=== PATIENT | female | born 2000 | race Two or more races ===

== ENCOUNTER 2025-05-01 11:46 | Inpatient (IN) | payer MEDICAID, SELFPAY ==
--- NOTE | 2025-05-01 | XR_ITS ---
Examination: MRI pelvis, without intravenous contrast. Exam date and time: May 01, 2025 1714 hours INDICATIONS: Abdominal pain nausea vomiting and diarrhea being exam this morning Technique: Multiple axial, sagittal and coronal images of the pelvis have been obtained with the Siemens high-resolution 1.5 Jenna MRI scanner. Images obtained included T2 weighted fat suppressed sagittal sections, TR 3500, TE 46, T2 weighted coronal fat suppressed images, TR 3050, TE 84, T2-weighted transverse fat suppressed images, TR 30-60, TE 63, proton density transverse images, TR 4720, TE 46, and T1 weighted coronal images, TR 560, TE 13. Findings: Anteverted uterus 7.4 x 4.2 x 3.8 cm Endometrial stripe 11 mm No discrete uterine mass Small bilateral ovarian follicular cysts Cystic mass in the central pelvis with septation at its right anterolateral margin axial image 7, measuring at least 22 x 10 cm, incompletely visualized on this study Urinary bladder intact No pelvic lymphadenopathy Mild free fluid in the pelvis Homogeneous marrow signal IMPRESSION: Large cystic mass with septation arising in the pelvis and extending into the abdomen, as on the differential list is cystadenoma, cystadenocarcinoma less likely but not excluded
--- NOTE | 2025-05-01 | XR_ITS ---
Examination: MRI abdomen, without contrast Date and time of exam: May 01, 2025 1714 hours INDICATIONS: Abdominal pain nausea vomiting diarrhea beginning 3:00 AM this morning Large cystic mass arising in the pelvis extending into the abdomen on CT abdomen pelvis study today at 3:32 PM Technique: Multiple axial sagittal and coronal images of the abdomen have been obtained with the Siemens high-resolution 1.5 Jenna MRI scanner. Images obtained include T2-weighted fat-suppressed sagittal sections, TR 3500, TE 46, T2 weighted coronal fat suppressed images, TR 3050, TE 84, T2-weighted transverse fat suppressed images, TR 3260, TE 63, proton density transverse images, TR 4720 TE 46, and T1 weighted coronal images, TR 560, TE 13. Findings: No focal liver lesions No gallstones Spleen is not enlarged Mild right hydronephrosis Partially visualized very large cystic pelvic mass with septations, extending into the upper left abdomen, incompletely visualized but at least 22 x 28 cm No abdominal lymphadenopathy Aorta is normal in size IMPRESSION: Partially visualized very large cystic mass arising in the pelvis extending into the upper left abdomen, chest on the differential diagnosis is cyst adenoma, cystadenocarcinoma less likely but not excluded No postcontrast images have been obtained, which would help in assessing for mural , septal or nodular enhancement within this mass
[2025-05-01 11:47] VITALS: BMI 22.3
[2025-05-01 12:23] VITALS: BP 110/70; PULSE 108; RESP 18; TEMP 37; O2SAT 100
--- NOTE | 2025-05-01 12:34 | XR_ITS ---
Examination: CT abdomen and pelvis without contrast. Coronal 3-D reconstructions. Sagittal 2-D reconstructions. Date and time of exam:May 01, 2025 1532 hours INDICATIONS: Diffuse abdominal distention nausea vomiting diarrhea today CTDI: vol (mGy): 6.08 DLP: (mGycm): 40 Technique: Axial images of the abdomen have been obtained, 3 mm slice thickness Intravenous contrast material has not been administered. Low dose protocols were performed. One or more of the following dose reduction techniques were used; automated exposure control, adjustment of the mA and/or KV according to patient size, use of iterative reconstruction technique. Findings: No focal liver or splenic lesions No gallstones No pancreatic mass Moderate right hydronephrosis Very large cystic mass arising in the pelvis extending into the abdomen, at least 22 x 10 x 28 cm The mass contains septations No bowel obstruction No pericecal inflammatory change Bladder intact IMPRESSION: 22 x 10 x 28 cm cystic mass in the pelvis extending into the abdomen, differential would include cystadenoma, cystadenocarcinoma, recommend pelvic sonography follow-up
[2025-05-01] MEDS: MORPHINE SULF INJ 10 MG/ML VIAL 4 MG IVP (13:06)
[2025-05-01] MEDS: ONDANSETRON INJ 2 MG/ML INJ 2 ML 4 MG IVP (13:06)
[2025-05-01] MEDS: SODIUM CHLORIDE 0.9% 1000 ML 1,000 ML 999 ML IV ×2 (13:07→18:24)
[2025-05-01 13:13] LABS: Basophils % (Auto) 0 % (0-2.5); Eosinophils % (Auto) 0 % (0-10); Hematocrit 35.9 % (36.0-46.0); Hemoglobin 12.6 g/dL (12.0-16.0); Immature Granulocytes % (Auto) 0 % (0-0); Immature Granulocytes Auto 0.04 Thou/mm3 (0.00-0.00); Lymphocytes # (Auto) 0.3 Thou/mm3 (1.0-4.8); Lymphocytes % (Auto) 3 % (10-50); Mean Corpuscular HGB Conc 35.1 g/dl (31.0-37.0); Mean Corpuscular Hemoglobin 31.6 pg (25.0-35.0); Mean Corpuscular Volume 90 fL (80-100); Monocytes # (Auto) 0.4 Thou/mm3 (0.0-0.8); Monocytes % (Auto) 4 % (0-12); Neutrophils # (Auto) 9.9 Thou/mm3 (1.8-7.7); Neutrophils % (Auto) 93 % (37-80); Nucleated Red Blood Cell % 0 /100 WBC (0); Platelet Count 232 Thou/mm3 (140-440); RDW Standard Deviation 40.8 fL (36.4-46.3); Red Blood Count 3.99 Miln/mm3 (4.00-5.20); White Blood Count 10.6 Thou/mm3 (3.6-11.0)
[2025-05-01 13:28] VITALS: BP 126/77; PULSE 99; RESP 17; TEMP 36.8; O2SAT 96
[2025-05-01 13:30] LABS: Alanine Aminotransferase 20 U/L (10-49); Albumin, Serum 4.3 gm/dL (3.5-5.0); Alkaline Phosphatase 59 U/L (46-116); Anion Gap 15 (7-16); BUN/Creatinine Ratio 16 Ratio (12-20); Bilirubin,Total 1.4 mg/dL (0.3-1.2); Blood Urea Nitrogen 11 mg/dL (9-23); Calcium 9.3 mg/dL (8.3-10.6); Calcium (Corrected) 9.3 mg/dL (8.5-10.1); Carbon Dioxide 21.8 mMol/L (20.0-31.0); Chloride 105 mMol/L (98-107); Creatinine (Component) 0.7 mg/dL (0.6-1.3); Estimated Creatinine Clearance 100.7 mL/min (>60); Globulin 2.1 gm/dL (2.3-3.5); Glucose 114 mg/dL (74-106); Lipase 37 U/L (12-53); Osmolality,Calculated 283 (275-295); Potassium 3.3 mMol/L (3.4-5.1); Sodium 142 mMol/L (136-145); Total Protein 6.4 gm/dL (5.7-8.2); eGFR > 60 See Note
--- NOTE | 2025-05-01 13:51 | EDNOTE_ITS ---
ED Abdominal Pain RME/HPI General Chief Complaint: Abdominal Pain Stated complaint: ABD PAIN, N/V/D SINCE 3AM; ANXIETY Time seen by provider: 05/01/25 11:58 Arrival date/time: 05/01/25 11:46 Source: patient and family Mode of arrival: ambulatory Limitations: no limitations RME / HPI RME / HPI narrative: 24-year-old female with past medical history of appendicitis status post appendectomy in 2019 presents for evaluation of diffuse abdominal pain x 8 hours. Patient reports sharp, cramping, diffuse pain that woke her from sleep. She reports x 4 episodes of emesis and many episodes of loose stools. She endorses persistent nausea. She notes mild distention and abdominal firmness for the last several months. Patient denies known sick contacts, recent travel, recent antibiotic use. MD complaint: abdominal pain Onset (ago): hour(s) Consistency: constant Location: diffuse Severity scale (1-10): 7 Quality: aching and fullness Relieving factors: nothing Related Data LMP (females 10-50): last week Home Medications ?Medication ?Instructions ?Recorded ?Confirmed escitalopram oxalate 10 mg tablet 10 mg PO QDAY 05/01/25 (Lexapro) loratadine 10 mg tablet (Allergy 10 mg PO QDAY 5 05/01/25 Relief (loratadine)) Previous Rx's ?Medication ?Instructions ?Recorded ibuprofen 600 mg tablet 600 mg PO Q6HR PRN PAIN(1-3) OR 05/02/25 FEVER > 101.5 10 days #40 tabs oxycodone-acetaminophen 5 mg-325 1 tab PO Q6H PRN Pain Scale 4-6 05/02/25 mg tablet (Moderate 5 days #20 tabs sennosides 8.6 mg-docusate sodium 1 tab-cap PO QDAY 30 days #30 tabs 05/02/25 50 mg tablet (Stool Softener-Laxative) Allergies Allergy/AdvReac Type Severity Reaction Status Date / Time terbinafine Allergy Severe Rash Verified 05/01/25 11:50 Review of Systems Constitutional Constitutional: Denies anorexia, Denies body ache(s), Denies chills, Denies excessive sweating, Denies fatigue, Denies fever(s), Denies headache(s), Denies poor appetite, Denies night sweats and Denies weight loss Eyes Eyes: Denies blind spots and Denies blurry vision ENT Ears, Nose, Mouth, and Throat: Denies dizziness, Denies headache(s), Denies neck pain and Denies vertigo Cardiovascular Cardiovascular: Denies chest pain, Denies dyspnea and Denies leg edema Respiratory Respiratory: Denies cough, Denies dyspnea and Denies hemoptysis Gastrointestinal Gastrointestinal: Reports abdominal pain, Denies belching, Reports bloating, Denies change in bowel habits, Reports change in stool character, Denies coffee ground emesis, Reports cramping, Reports diarrhea, Denies early satiety, Denies hematemesis, Reports nausea and Reports vomiting Genitourinary Genitourinary: Denies abnormal vaginal bleeding and Denies dysuria Musculoskeletal Musculoskeletal: Denies back pain, Denies muscle weakness and Denies neck pain Integumentary/Breasts Skin/Breast: Denies jaundice and Denies rash Neurologic Neurologic: Denies behavioral changes, Denies dizziness, Denies headache(s) and Denies vertigo Psychiatric Psychiatric: Reports anxiety and Denies behavioral changes Endocrine Endocrine: Denies excessive sweating and Denies fatigue Past Medical History Past Medical History NEUROLOGIC: Negative Neurological Disorders or Seizures CARDIAC: Negative Cardiac Disorders or Congestive Heart Failure RESPIRATORY: Negative Respiratory Disorders, Chronic Obstructive Pulmonary Disease (COPD) or Asthma GASTROINTESTINAL: Negative Gastrointestinal Disorders GENITOURINARY: Negative Genitourinary Disorders or Renal Disease MUSCULOSKELETAL: Negative Musculoskeletal Disorders ENDOCRINE: Negative Endocrine Disorders, Diabetes Mellitus Type 1 or Diabetes Mellitus Type 2 HEMATOLOGIC: Negative Blood Disorders, Anemia or Sickle Cell Disease PSYCHO/SOCIAL: Positive Depression and Anxiety OTHER HISTORY: Negative Hospitalization, Autoimmune Disease, Down Syndrome, Developmental Delay, Shingles, Falls, Blood Transfusions, Blood Transfusion Reaction, Anesthesia Reactions or Cancer Family History FAMILY HISTORY: Negative Family Cardiac Disorders Surgical History SURGICAL: Positive Abdominal Surgery Social History SMOKING STATUS: Former smoker SECOND HAND EXPOSURE: No SUBSTANCE USE: does not use ED Exam General Limitations: Present no limitations General appearance: Present alert, in no apparent distress and anxious; Absent obtunded Head Head exam: Present atraumatic and normocephalic Eye Eye exam: Present normal appearance and EOMI; Absent scleral icterus ENT ENT exam: Present normal oropharynx and mucous membranes moist Neck Neck exam: Present normal inspection and full ROM Chest Chest inspection: Present normal inspection and symmetric chest wall rise Respiratory Respiratory exam: Present normal lung sounds bilaterally; Absent respiratory distress or wheezes Cardiovascular Cardiovascular exam: Present tachycardia and +S1 Abdominal Exam Abdominal exam: Present soft, distention, guarding, rigidity and normal bowel sounds; Absent tenderness, ascites, mass, pulsatile mass or scar Rectal Exam Rectal exam: Present deferred Extremities Exam Extremities exam: Present normal inspection and full ROM Back Exam Back exam: Present normal inspection and full ROM Neurological Exam Neurological exam: Present alert Psychiatric Psychiatric exam: Present normal affect Skin Skin exam: Present warm, dry, intact and normal color Course Quality Measures none Orders Category Date Time Status Bedside COVID-19 Antigen Test NOW Care 05/01/25 12:36 Completed Bedside Influenza A&B Antigen Test NOW Care 05/01/25 12:36 Completed COVID-19 Screening Questionnaire NOW Care 05/01/25 16:54 Completed Decision to Admit X1 Care 05/01/25 16:54 Completed Insert IV NOW Care 05/01/25 12:35 Completed MRI Screening NOW Care 05/01/25 16:[address] abdomen pelvis wo con Stat Exams 05/01/25 12:34 Completed MR abdomen wo con Stat Exams 05/01/25 Completed MR pelvis wo con Stat Exams 05/01/25 Completed CA 125 Stat Lab 05/01/25 13:02 Completed CBC Stat Lab 05/01/25 13:02 Completed CMP [Comprehensive Metabolic Panel] Stat Lab 05/01/25 13:02 Completed HCG,Qualitative Serum Stat Lab 05/01/25 13:02 Completed Lipase Stat Lab 05/01/25 13:02 Completed UA [Urinalysis] Stat Lab 05/01/25 12:34 Completed Acetaminophen Tab [Tylenol Tab] Med 05/01/25 18:13 Discontinued 650 mg PO X1 ONE Morphine Inj Med 05/01/25 12:35 Discontinued 4 mg IVP X1 ONE Ondansetron Inj [Zofran Inj] Med 05/01/25 12:35 Discontinued 4 mg IVP X1 ONE Sodium Chloride 0.9% 1000 ml [Ns] 1,000 ml Med 05/01/25 12:35 Discontinued IV 999 mls/hr Sodium Chloride 0.9% 1000 ml [Ns] 1,000 ml Med 05/01/25 18:14 Discontinued IV 999 mls/hr Vital Signs Vital signs: Vital Signs Temperature 98.6 F 05/01/25 12:23 Pulse Rate 108 H 05/01/25 12:23 Respiratory Rate 18 05/01/25 12:23 Blood Pressure 110/70 05/01/25 12:23 Pulse Oximetry (%) 100 05/01/25 12:23 Oxygen Delivery Method Room Air 05/01/25 12:23 Abdominal Pain MDM MDM Narrative MDM Narrative:: Very pleasant 24-year-old female presented with acute onset nausea and vomiting x 8 hours prior to arrival. Patient endorsed abdominal distention x 1 year. Patient tachycardic with borderline fever on initial vital signs. Abdominal workup showed no evidence of pancreatitis or cirrhotic changes, however large mass noted on CT abdomen pelvis. This case was discussed with Dr. Rhoades OBGYN post tensioning ironworker helper, who very kindly agreed to admit the patient for further workup and treatment. Patient's pain was improved following morphine and Tylenol in the department. Patient was given multiple bags of fluids and I personally discussed the results of her workup in the ED with her and her mom. Patient stable at time of admission. We are grateful to have dissipated in patient's care today. Patient data External records reviewed:: [facility] previous records Clinical information provided by:: patient and parent Social determinants that could affect healthcare access:: none Patient has the following chronic illnesses:: None reported. How is presenting disease/condition affected by chronic disease/condition?: no chronic disease Evaluation data The following diagnostics were reviewed and interpreted by me:: lab results and radiology exam(s) Lab and/or radiology exams considered but not ordered:: Mild hypokalemia. Mild hyperglycemia. Otherwise no evidence of endorgan damage or gross electrolyte abnormalities. No leukocytosis. No anemia. hCG negative. Interpretation Summary: CT Abd pelvis w/o contrast: Findings: 22 x 10 x 28 cm cystic mass in the pelvis extending into the abdomen, differential would include cystadenoma, cystadenocarcinoma, recommend pelvic sonography follow-up Medications / Prescriptions Medications or Prescriptions considered but not ordered:: Rx given. Medication administrations:: Medication Administration History Acetaminophen (Acetaminophen 325 Mg Tablet) 650 mg PO Q6H PRN PRN Reason: Fever >101.5 Stop: 05/31/25 18:40 Bisacodyl (Bisacodyl 5 Mg Tabec) 10 mg PO QDAY PRN PRN Reason: CONSTIPATION Stop: 05/31/25 18:40 Bisacodyl (Bisacodyl 10 Mg Supp) 10 mg NC QDAY PRN PRN Reason: CONSTIPATION Stop: 05/31/25 18:40 Escitalopram Oxalate (Escitalopram Oxalate 10 Mg Tablet) 10 mg PO QDAY TERESE Stop: 06/01/25 08:59 Last Admin: 05/02/25 08:36 Dose: Not Given Documented By: TD Non-Admin Reason: NPO Hydromorphone HCl (Hydromorphone Hcl 2 Mg Tablet) 2 mg PO Q4HR PRN PRN Reason: PAIN SCALE 7-10 (Severe Stop: 05/07/25 14:04 Last Admin: 05/03/25 02:20 Dose: 2 mg Documented By: Admin: 05/02/25 22:03 Dose: 2 mg Documented By: Admin: 05/02/25 16:11 Dose: 2 mg Documented By: BROCK Hydromorphone HCl (Hydromorphone Inj 2 Mg/Ml Vial) 1 mg IVP Q2H PRN PRN Reason: PAIN SCALE 7-10 (Severe Stop: 05/06/25 18:40 Last Admin: 05/02/25 23:27 Dose: 1 mg Documented By: Admin: 05/02/25 18:13 Dose: 1 mg Documented By: BROCK Dextrose/Sodium Chloride (D5-1/2ns) 1,000 mls @ 100 mls/hr IV .Q10H TERESE Stop: 05/31/25 18:44 Last Admin: 05/03/25 02:25 Dose: 100 mls/hr Documented By: Infusion: 05/03/25 02:12 Dose: Infused Documented By: Admin: 05/02/25 16:12 Dose: 100 mls/hr Documented By: Infusion: 05/02/25 16:12 Dose: Infused Documented By: Admin: 05/02/25 06:12 Dose: 100 mls/hr Documented By: Infusion: 05/02/25 05:36 Dose: Infused Documented By: Admin: 05/01/25 19:36 Dose: 100 mls/hr Documented By: REHAN Acetaminophen (Ofirmev Inj) 1,000 mg in 100 mls @ 250 mls/hr IV Q6H TERESE Stop: 05/03/25 08:28 Last Admin: 05/03/25 02:20 Dose: 250 mls/hr Documented By: Infusion: 05/02/25 21:25 Dose: Infused Documented By: Admin: 05/02/25 21:01 Dose: 250 mls/hr Documented By: Infusion: 05/02/25 15:10 Dose: Infused Documented By: Admin: 05/02/25 14:42 Dose: 250 mls/hr Documented By: BLADIMIR Ibuprofen (Ibuprofen Tab 600 Mg Tablet) 600 mg PO Q6HR PRN PRN Reason: PAIN(1-3) OR FEVER > 101.5 Stop: 06/01/25 14:04 Loratadine (Loratadine 10 Mg Tablet) 10 mg PO QDAY [facility] Stop: 06/01/25 08:59 Last Admin: 05/02/25 08:36 Dose: Not Given Documented By: TD Non-Admin Reason: NPO Ondansetron HCl (Ondansetron Inj 2 Mg/Ml Inj 2 Ml) 4 mg IVP Q6H PRN PRN Reason: NAUSEA OR VOMITING Stop: 05/31/25 18:40 Pantoprazole Sodium (Pantoprazole 40 Mg Tablet) 40 mg PO QDAY [facility] Stop: 05/31/25 18:44 Last Admin: 05/02/25 08:36 Dose: Not Given Documented By: TD Non-Admin Reason: NPO Admin: 05/01/25 19:35 Dose: 40 mg Documented By: REHAN Discontinued Medications Acetaminophen (Acetaminophen 325 Mg Tablet) 650 mg PO X1 ONE Stop: 05/01/25 18:14 Last Admin: 05/01/25 18:21 Dose: 650 mg Documented By: REHAN Cefazolin Sodium (Cefazolin Inj 1 Gm Vial) Confirm Administered Dose 2 gm .ROUTE .STK-MED ONE Stop: 05/02/25 13:39 Dexamethasone Sodium Phosphate (Dexamethasone Sod Phos Inj 10 Mg/Ml Vial) Confirm Administered Dose 10 mg .ROUTE .STK-MED ONE Stop: 05/02/25 13:44 Fentanyl Citrate (Fentanyl Cit Inj 50 Mcg/Ml Amp 2ml) Confirm Administered Dose 100 mcg .ROUTE .STK-MED ONE Stop: 05/02/25 13:04 Fentanyl Citrate (Fentanyl Cit Inj 50 Mcg/Ml Amp 2ml) 50 mcg IVP Q5M PRN PRN Reason: PAIN SCALE 7-10 (Severe Stop: 05/02/25 16:32 Last Admin: 05/02/25 14:56 Dose: 50 mcg Documented By: BLADIMIR Fentanyl Citrate (Fentanyl Cit Inj 50 Mcg/Ml Amp 2ml) Confirm Administered Dose 100 mcg .ROUTE .STK-MED ONE Stop: 05/02/25 14:23 Hydromorphone HCl (Hydromorphone Inj 2 Mg/Ml Vial) 1 mg IVP Q2H PRN PRN Reason: PAIN SCALE 7-10 (Severe Stop: 05/06/25 18:40 Last Admin: 05/02/25 08:44 Dose: 1 mg Documented By: BROCK Sodium Chloride (Ns) 1,000 mls @ 999 mls/hr IV .Q1H1M ONE Stop: 05/01/25 13:35 Last Infusion: 05/01/25 14:08 Dose: Infused Documented By: Admin: 05/01/25 13:07 Dose: 999 mls/hr Documented By: AA Sodium Chloride (Ns) 1,000 mls @ 999 mls/hr IV .Q1H1M ONE Stop: 05/01/25 19:14 Last Admin: 05/01/25 18:24 Dose: 999 mls/hr Documented By: REHAN Acetaminophen (Ofirmev Inj) 1,000 mg in 100 mls @ 250 mls/hr IV PRN PRN PRN Reason: PAIN 1-6 (mild-mod Ibuprofen (Ibuprofen Tab 600 Mg Tablet) 600 mg PO Q6HR PRN PRN Reason: PAIN(1-3) OR FEVER > 101 Stop: 06/01/25 14:04 Ibuprofen (Ibuprofen Tab 600 Mg Tablet) 600 mg PO Q6HR PRN PRN Reason: PAIN(1-3) OR FEVER > 101.5 Stop: 06/01/25 14:04 Ketorolac Tromethamine (Ketorolac Inj 30 Mg/Ml Vial) Confirm Administered Dose 30 mg .ROUTE .STK-MED ONE Stop: 05/02/25 13:44 Midazolam HCl (Midazolam Inj 1 Mg/Ml Vial 2 Ml) Confirm Administered Dose 2 mg .ROUTE .STK-MED ONE Stop: 05/02/25 13:00 Morphine Sulfate (Morphine Sulf Inj 10 Mg/Ml Vial) 4 mg IVP X1 ONE Stop: 05/01/25 12:36 Last Admin: 05/01/25 13:06 Dose: 4 mg Documented By: ANA PAULA Ondansetron HCl (Ondansetron Inj 2 Mg/Ml Inj 2 Ml) 4 mg IVP X1 ONE; Protocol Stop: 05/01/25 12:36 Last Admin: 05/01/25 13:06 Dose: 4 mg Documented By: ANA PAULA Ondansetron HCl (Ondansetron Inj 2 Mg/Ml Inj 2 Ml) Confirm Administered Dose 4 mg .ROUTE .STK-MED ONE Stop: 05/02/25 13:44 Ondansetron HCl (Ondansetron Inj 2 Mg/Ml Inj 2 Ml) 4 mg IVP Q6HR PRN; Protocol PRN Reason: NAUSEA OR VOMITING Stop: 06/01/25 14:31 Oxycodone/Acetaminophen (Oxycodone/Apap 5/325 Tablet) 1 tab PO Q6H PRN PRN Reason: PAIN SCALE 4-6 (Moderate Stop: 05/06/25 18:40 Last Admin: 05/02/25 00:58 Dose: 1 tab Documented By: ABEBA Phenylephrine HCl (Phenylephrine Inj In Ns 100 Mcg/Ml 10 Ml Syringe) Confirm Administered Dose 1,000 mcg .ROUTE .STK-MED ONE Stop: 05/02/25 13:19 Propofol (Propofol Inj 10 Mg/Ml Vial 20 Ml) Confirm Administered Dose 200 mg IV .STK-MED ONE Stop: 05/02/25 13:04 Rocuronium [place] (Rocuronium Inj 10 Mg/Ml Vial 10 Ml) Confirm Administered Dose 100 mg .ROUTE .STK-MED ONE Stop: 05/02/25 13:04 Sugammadex Sodium (Sugammadex Inj 100 Mg/Ml 2ml Vial) Confirm Administered Dose 200 mg .ROUTE .STK-MED ONE Stop: 05/02/25 13:39 Sugammadex Sodium (Sugammadex Inj 100 Mg/Ml 2ml Vial) Confirm Administered Dose 200 mg .ROUTE .STK-MED ONE Stop: 05/02/25 13:44 Rx given. Consultations Consultation(s) initiated? (list below): Yes Consultation #1 (Physician, Specialty, Details): Dr. Rhoades (OBGYN post tensioning ironworker helper) kindly agreed to admit and see pt in ED. Diagnosis Differential diagnosis abdominal pain: abdominal pain, calculus of kidney, gastroenteritis, pancreatitis and small bowel obstruction Most likely diagnosis given after review of the tests above:: abdominal pain, pelvic mass. Admission Indicated Admission indicated?: indicated Admission Request Was there a request for admission?: Yes Admission Attestation Admission request attestation: Discussed case with from OBGYN service regarding admission. Discussed patients ED course, exam findings, labs, and radiology results. The Hospitalist agrees to accept the patient for admission. Disposition Plan Disposition Plan: Admit Discharge Plan Plan Patient Disposition: Admit Acute Care w/in Hospital Discharge Disposition comment: stable Patient condition on transfer: Stable Problem List Clinical Impression: Pelvic mass in female, Abdominal pain Patient/Caregiver Discharge Instructions Discharge Activity: activity as tolerated Other Activity Instructions:: Follow up office 1 week.
[2025-05-01 14:38] LABS: Collection Type, Urine Clean Catch
[2025-05-01 15:00] LABS: Bilirubin,Urine Negative (Negative); Blood,Urine Negative (Negative); Clarity,Urine Clear (Clear/Hazy); Color,Urine Colorless (Lt Yel-Yel); Glucose, Urine Negative (Negative); Ketones,Urine 2+ (Negative); Leukocyte Esterase,Urine Negative (Negative); Nitrite,Urine Negative (Negative); Protein,Urine 1+ (Neg - Trace); RBC,Urine 3 /hpf (0-3); Specific Gravity,Urine 1.008 (1.001-1.035); Squamous Epithelial Cell,Urine < 1 /hpf (0-5); Urobilinogen,Urine Negative mg/dL (0.0-1.0); WBC,Urine 1 /hpf (0-5)
[2025-05-01 15:17] LABS: HCG,Qualitative Serum Negative
[2025-05-01 17:06] VITALS: BP 127/77; PULSE 120; RESP 18; TEMP 38; O2SAT 97
--- NOTE | 2025-05-01 17:20 | PC.NURSE ---
PT TO MRI
[2025-05-01 18:21] VITALS: TEMP 38
[2025-05-01] MEDS: ACETAMINOPHEN 325 MG TABLET 650 MG PO (18:21)
--- NOTE | 2025-05-01 18:44 | ESHP_ITS ---
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 GUEVARA is a 24 year old female with a history of appendicitis who presents to the emergency room with diffuse abdominal pain for the last 8 hours. She reports 4 episodes of emesis and multiple episodes of loose stools, accompanied by persistent nausea, mild distension, and firmness in her abdomen for the last several months. Patient has noticed a feeling of something in her stomach for approximately a year, with some weight gain, though not significant. She experiences pretty bad period cramps at times, but states her periods have otherwise been fine. During the emergency room evaluation, an incidental finding of a large cystic mass arising from the pelvis and extending into the abdomen was noted. Patient has not seen an OB-ANIMAL HUSBANDRY MANAGER doctor in the last 2-3 years. Medical history includes appendicitis in 2019, with an appendectomy performed the same year. Review of systems is positive for mild abdominal distension, firmness in abdomen, diffuse abdominal pain, nausea, emesis, loose stools, and occasional severe menstrual cramps. Patient denies fever and chills. Review of Systems Review of Systems Systems Reviewed: All systems reviewed, normal except as documented Meds Home Medications and Allergies Allergies Allergy/AdvReac Type Severity Reaction Status Date / Time terbinafine Allergy Severe Rash Verified 05/01/25 11:50 Exam - ANIMAL HUSBANDRY MANAGER Vital Signs Temp Pulse Resp BP Pulse Ox O2 Del Method 100.4 F 120 H 18 127/77 97 Room Air 05/01/25 17:06 05/01/25 17:06 05/01/25 17:06 05/01/25 17:06 05/01/25 17:06 05/01/25 17:06 Constitutional Constitutional: no acute distress Routine HEENT Exam Head: Present normocephalic and atraumatic Eye: Present EOMI and PERRL ENT: Present mucous membranes moist Routine Neck Exam Neck: Present supple and trachea midline Routine Respiratory Exam Respiratory: Present chest non-tender, lungs clear, normal breath sounds and no resp distress Routine Cardiovascular Exam Cardiovascular: Present RRR Routine Abdominal Exam Comments: Mass felt all over abdomen, minimal tenderness Routine Extremities Exam Extremities: Present full ROM Routine Skin Exam Skin: Present intact and dry Routine Neurological Exam Neurological: Present alert, oriented X3 and CN II-XII intact Routine Psychiatric Exam Psychiatric: Present normal affect and normal thought process ANIMAL HUSBANDRY MANAGER - Results Labs 05/01/25 13:02 05/01/25 13:02 Labs: Short CBC 05/01/25 Range/Units 13:02 WBC 10.6 (3.6-11.0) Thou/mm3 Hgb 12.6 (12.0-16.0) g/dL Hct 35.9 L (36.0-46.0) % Plt Count 232 (140-440) Thou/mm3 BMP 05/01/25 13:02 Sodium 142 Potassium 3.3 L Chloride 105 Carbon Dioxide 21.8 BUN 11 Creatinine 0.7 Glucose 114 H Calcium 9.3 Liver Function 05/01/25 Range/Units 13:02 Total Bilirubin 1.4 H (0.3-1.2) mg/dL ALT 20 (10-49) U/L Alkaline Phosphatase 59 (46-116) U/L Albumin 4.3 (3.5-5.0) gm/dL Urine 05/01/25 Range/Units 14:30 Urine Color Colorless A (Lt Yel-Yel) Urine Clarity Clear (Clear/Hazy) Urine pH 7.0 (5.0-7.0) Ur Specific [place] 1.008 (1.001-1.035) Urine Protein 1+ A (Neg - Trace) Urine Glucose (UA) Negative (Negative) Impressions Impression: Physical Examination: - Abdomen: Large cystic mass palpated arising from the pelvis and extending into the abdomen. Mass measures approximately 22 cm by 20 cm, with a thickness of about 15 cm. Diagnostic Test Results and Labs: CT scan: - Large cystic mass arising in the pelvis and extending into the abdomen - Mass measures 22 x 10 x 28 cm with septations - No signs of bowel obstruction - No pericardial inflammatory change - Intact bladder Assessment and Plan Assessment and plan (1) Pelvic mass in female: Status: Acute Assessment and plan: Large Pelvic Cystic Mass: - Incidentally found large cystic mass arising from pelvis, extending into abdomen. - Mass measures 22 x 10 x 28 cm with septations. - CT scan shows no signs of bowel obstruction, no pericardial inflammatory changes, intact bladder. - Patient reports abdominal firmness and mild distension for several months. - Most likely diagnosis: benign serous cystadenoma, given patient's age and presentation. Plan: - Admit patient for further evaluation and management. - Order MRI of pelvis and abdomen to better characterize mass and determine surgical approach. - Obtain comprehensive blood panel including tumor markers. - Schedule surgery for following day, pending test results. - Perform surgical excision of the mass. - Discuss risks, benefits, and alternatives of surgery with patient; obtained verbal consent. - Provide post-operative follow-up recommendations after surgery. Quality Measures Quality Measures VTE prophylaxis
[2025-05-01] MEDS: PANTOPRAZOLE 40 MG TABLET PO (19:35)
[2025-05-01] MEDS: DEXTROSE 5%-0.45% NS 1,000 ML 100 ML IV (19:36)
[2025-05-01 19:37] VITALS: TEMP 37.3
[2025-05-01 19:42] VITALS: BMI 22.1
[2025-05-01 20:00] VITALS: BP 135/82; PULSE 115; RESP 18; TEMP 37.6; O2SAT 98
[2025-05-02] VITALS (15 sets, daily range): BP systolic 91–119; BP diastolic 53–76; PULSE 82–104; RESP 12–16; TEMP 36.6–37.3; O2SAT 96–100; BMI 22.1
[2025-05-02] MEDS: oxyCODONE/APAP 5/325 TABLET 1 TAB PO (00:58)
[2025-05-02 05:49] LABS: Basophils % (Auto) 0 % (0-2.5); Eosinophils % (Auto) 0 % (0-10); Hematocrit 28.2 % (36.0-46.0); Immature Granulocytes % (Auto) 0 % (0-0); Immature Granulocytes Auto 0.02 Thou/mm3 (0.00-0.00); Lymphocytes # (Auto) 0.8 Thou/mm3 (1.0-4.8); Lymphocytes % (Auto) 17 % (10-50); Mean Corpuscular HGB Conc 35.5 g/dl (31.0-37.0); Mean Corpuscular Hemoglobin 31.4 pg (25.0-35.0); Mean Corpuscular Volume 89 fL (80-100); Monocytes # (Auto) 0.4 Thou/mm3 (0.0-0.8); Monocytes % (Auto) 9 % (0-12); Neutrophils # (Auto) 3.3 Thou/mm3 (1.8-7.7); Neutrophils % (Auto) 73 % (37-80); Nucleated Red Blood Cell % 0 /100 WBC (0); Platelet Count 182 Thou/mm3 (140-440); RDW Standard Deviation 42.9 fL (36.4-46.3); Red Blood Count 3.18 Miln/mm3 (4.00-5.20); White Blood Count 4.5 Thou/mm3 (3.6-11.0)
[2025-05-02 06:06] LABS: INR 1.2 (0.9-1.3); Partial Thromboplastin Time 26.4 Seconds (22.0-36.0)
[2025-05-02] MEDS: DEXTROSE 5%-0.45% NS 1,000 ML 100 ML IV ×2 (06:12→16:12)
[2025-05-02 06:25] LABS: Alanine Aminotransferase 13 U/L (10-49); Albumin, Serum 3.4 gm/dL (3.5-5.0); Albumin/Globulin Ratio 2.1 (1.2-2.2); Alkaline Phosphatase 44 U/L (46-116); Anion Gap 10 (7-16); Aspartate Amino Transferase 17 U/L (0-34); BUN/Creatinine Ratio 8 Ratio (12-20); Bilirubin,Total 0.8 mg/dL (0.3-1.2); Blood Urea Nitrogen < 5 mg/dL (9-23); Calcium (Corrected) 8.5 mg/dL (8.5-10.1); Carbon Dioxide 22.9 mMol/L (20.0-31.0); Chloride 110 mMol/L (98-107); Creatinine (Component) 0.6 mg/dL (0.6-1.3); Estimated Creatinine Clearance 117.5 mL/min (>60); Globulin 1.6 gm/dL (2.3-3.5); Glucose 111 mg/dL (74-106); Osmolality,Calculated 283 (275-295); Potassium 3.3 mMol/L (3.4-5.1); Sodium 143 mMol/L (136-145); eGFR > 60 See Note
[2025-05-02] MEDS: HYDROmorphone INJ 2 MG/ML VIAL 1 MG IVP ×3 (08:44→23:27)
--- NOTE | 2025-05-02 09:00 | ESPR_ITS ---
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 Continues to have the dull abdominal pain. Exam Vital Signs Temp Pulse Resp BP Pulse Ox O2 Del Method 97.8 F 84 12 106/76 96 Room Air 05/02/25 08:00 05/02/25 08:00 05/02/25 08:00 05/02/25 08:00 05/02/25 08:00 05/02/25 08:00 Constitutional Constitutional: no acute distress Routine HEENT Exam Head: Present normocephalic and atraumatic Eye: Present EOMI and PERRL ENT: Present mucous membranes moist Routine Neck Exam Neck: Present supple and trachea midline Routine Respiratory Exam Respiratory: Present chest non-tender, lungs clear, normal breath sounds and no resp distress Routine Cardiovascular Exam Cardiovascular: Present RRR Routine Abdominal Exam Abdominal: Present soft and normoactive bowel sounds Routine Extremities Exam Extremities: Present full ROM Routine Skin Exam Skin: Present intact and dry Routine Neurological Exam Neurological: Present alert, oriented X3 and CN II-XII intact Routine Psychiatric Exam Psychiatric: Present normal affect and normal thought process Urinary Catheter Management Cath placed during this visit: no TANK STAVE ASSEMBLER - PN: Obj Data Labs 05/02/25 05:02 05/02/25 05:02 Labs: Laboratory Results - last 24 hr 05/01/25 05/01/25 05/02/25 13:02 14:30 05:02 WBC 10.6 4.5 D RBC 3.99 L 3.18 L Hgb 12.6 10.0 L D Hct 35.9 L 28.2 L MCV 90 89 MCH 31.6 31.4 MCHC 35.1 35.5 RDW Std Deviation 40.8 42.9 Plt Count 232 182 D Neut % (Auto) 93 H 73 Lymph % (Auto) 3 L 17 [place] % (Auto) 4 9 Eos % (Auto) 0 0 Baso % (Auto) 0 0 Neut # (Auto) 9.9 H 3.3 Lymph # (Auto) 0.3 L 0.8 L [place] # (Auto) 0.4 0.4 Eos # (Auto) 0.0 0.0 Baso # (Auto) 0.0 0.0 Immature Gran # (Auto) 0.04 H 0.02 H Absolute Nucleated RBC 0.00 0.00 Immature Gran % 0 0 Nucleated RBC % 0 0 PT 13.0 H INR 1.2 APTT 26.4 Sodium 142 143 Potassium 3.3 L 3.3 L Chloride 105 110 H Carbon Dioxide 21.8 22.9 Anion Gap 15 10 BUN 11 < 5 L Creatinine 0.7 0.6 Estim Creat Clear Calc 100.7 117.5 eGFR > 60 > 60 BUN/Creatinine Ratio 16 8 L Glucose 114 H 111 H Calculated Osmolality 283 283 Calcium 9.3 8.0 L Corrected Calcium 9.3 8.5 Total Bilirubin 1.4 H 0.8 D AST 17 ALT 20 13 Alkaline Phosphatase 59 44 L D Total Protein 6.4 5.0 L Albumin 4.3 3.4 L D Globulin 2.1 L 1.6 L Albumin/Globulin Ratio 2.0 2.1 Lipase 37 CA 125 Antigen 17.0 HCG, Qual Negative Ur Collection Type Clean Catch Urine Color Colorless A Urine Clarity Clear Urine pH 7.0 Ur Specific [place] 1.008 Urine Protein 1+ A Urine Glucose (UA) Negative Urine Ketones 2+ A Urine Blood Negative Urine Nitrite Negative Urine Bilirubin Negative Urine Urobilinogen (Auto) Negative Ur Leukocyte Esterase Negative Urine RBC 3 Urine WBC 1 Ur Squamous Epith Cells < 1 Urine Bacteria None TANK STAVE ASSEMBLER - A/P Assessment and plan (1) Pelvic mass in female: Status: Acute Assessment and plan: Patient on add-on schedule for surgery today, n.p.o. since midnight, consent verified and signed Postoperative Procedures: Procedures Operation Date: 05/02/25 14:00 <No data on this case meets the specified criteria> Time Spent With Patient Time: Total time spent is greater than 50% in coordination of care (as documented) at patient's floor/unit and/or counseling patient: Time with patient: less than 15 minutes
--- NOTE | 2025-05-02 12:25 | PC.SS ---
SS met with patient who is alert/oriented. Patient was able to verify demographics. Patient is independent with ADL's. Patient resides alone. Patient admitted for pelvic mass. Surgery planned fo today. Patient is currently employed. She plans on returning home once medically stable. Patient states her alt medical decision maker is her motherMaira. Pharamcy: [facility]. PcP: Dr. Schmitt @ [facility] Alt medical decision maker: Maira Palmer, [phone] d/c plan: home
--- NOTE | 2025-05-02 13:59 | PD.GYNPROC ---
Operative Note - AUTOMATION DRIVER Procedure Date of procedure: 05/02/25 Procedure Performed: Laparotomy Removal of right ovarian cyst with oophorectomy Indication: 24-year-old G0 with 26 cm pelvic mass reaching up to the upper abdomen/diaphragm on Post-Op diagnosis: Right ovarian cyst Anesthesia type: General Procedure description: Informed consent was obtained the patient was taken to the operating room. Identity was confirmed abdomen. She was placed in the operating table in a supine position. General anesthesia was administered and patient was prepped in the usual sterile fashion sterile drapes were applied. A Santoyo catheter was placed to continuous drainage. A Pfannenstiel skin incision was made with a scalpel and carried through the subcutaneous layers up to the rectus fascia which was incised on either side of the midline. Fascial incision was extended bilaterally until the rectus muscle was exposed. The fascia was now dissected off the anterior surface of the rectus muscle. The rectus bellies were in the midline and the peritoneum was identified and entered bluntly. The peritoneal opening was gently stretched to create an adequate opening. Upon entry the entire pelvic and abdominal cavity were noted to be filled with a whitish appearing cyst which was now palpated the cephalad extension of the cyst was up to the diaphragm and inferiorly it was traced back to the right adnexa. The right adnexa was now briefly visualized and the fallopian tube was noted to be grossly stretched over the cyst no right ovary could be identified. The right infundibulopelvic ligament appeared to be entering into the cyst. The cyst was now brought partially exteriorized and a small incision was made with the Bovie to enter the cyst cavity. Clear to bloodstained fluid was expelled and the suction device was introduced into the cyst and all cyst fluid was slowly suctioned out. A total of 4000 mL was suctioned until the cyst cavity was sufficiently collapsed to fit through the Pfannenstiel incision. The cyst was now exteriorized and its origin was traced to the right ovary. Enseal device was used to first carefully dissected off the right fallopian tube taking care to protect all anatomic structures. Now the right utero-ovarian ligament was sealed and divided and finally the right infundibulopelvic ligament was sealed and divided. The cyst was finally freed up and handed off for pathological examination. No separate ovarian tissue could be identified. The dissection sites were inspected and noted to be adequately hemostatic The peritoneal cavity was now copiously irrigated with warm normal saline and all irrigation fluid was suctioned out. The dissection site was once again visualized and noted to be hemostatic. The peritoneum was now reapproximated. The rectus bellies were reapproximated. The rectus fascia was closed using 0 Vicryl in a running fashion. The subcutaneous fat was reapproximated using 0 plain gut. The skin was finally closed using 4-0 Monocryl in a subcuticular fashion. The skin was now thoroughly cleaned and a sterile pressure dressing was applied. Patient was undraped, general anesthesia was reversed and she was transferred to the recovery room in a stable and awake condition. Patient tolerated the entire procedure well. All instrument, sponge and lap counts were correct x 2. No complications were encountered throughout the procedure. Specimen: right ovary Estimated blood loss (ml): 50 Complications: none Surgical staff Operation Date: 05/02/25 13:15 <No data on this case meets the specified criteria> Diagnosis Discharge Diagnosis (1) Pelvic mass in female: Status: Acute Problem List Completed Was Problem List Reviewed/Reconciled?: Yes
--- NOTE | 2025-05-02 14:12 | SUR.PHASEI ---
pt received from OR in recovery bay 1. pt obtunded, breathing unlabored on oxymask 10l, oral airway in place. v/s stable. pt dressing to lower abd cdi. report received from Andry WOODALL and Maynor RON.
[2025-05-02] MEDS: ACETAMINOPHEN IVPB 1,000 MG/100 ML VIAL 250 MG IV ×2 (14:42→21:01)
[2025-05-02] MEDS: fentaNYL CIT INJ 50 mCg/ML AMP 2ML IVP (14:56)
--- NOTE | 2025-05-02 15:20 | SUR.PHASEI ---
pt asleep but responds to voice, breathing unlabored on room air. v/s stable. pt dressing to lower abd cdi. report called to Emelia Santa. pt will be transferred to room at this time.
[2025-05-02] MEDS: HYDROMORPHONE HCL 2 MG TABLET PO ×2 (16:11→22:03)
[2025-05-03] VITALS: BP 119/72; PULSE 80; RESP 16; TEMP 37; O2SAT 99
[2025-05-03] MEDS: HYDROMORPHONE HCL 2 MG TABLET PO ×2 (02:20→07:42)
[2025-05-03] MEDS: ACETAMINOPHEN IVPB 1,000 MG/100 ML VIAL 250 MG IV ×2 (02:20→09:57)
[2025-05-03] MEDS: DEXTROSE 5%-0.45% NS 1,000 ML 100 ML IV (02:25)
[2025-05-03 04:00] VITALS: BP 94/54; PULSE 88; RESP 18; TEMP 36.6; O2SAT 97
--- NOTE | 2025-05-03 07:04 | ESPR_ITS ---
RE: MATTHIEU GUEVARA : 2000 DATE OF SERVICE: 05/03/2025 SUBJECTIVE: Postoperative day #1, the patient denies any problem or complaints. She is voiding. She is ambulating. She is tolerating diet. She is has not passed flatus. She denies any excessive vaginal bleeding. She denies any dizziness or lightheadedness. She denies any chest pain, palpitations, shortness of breath, or lower extremity pain. She has adequate pain management. OBJECTIVE: Vital Signs: Blood pressure 94/54, heart rate 88, respirations 18, temperature 97.8, pulse oximetry is 97% on room air. Lungs: Clear to auscultation bilaterally. Heart: Regular rate and rhythm. Abdomen: Dressing dry and intact. Extremities: Nontender. ASSESSMENT: Postop day #1, status post laparotomy and right oophorectomy. PLAN: Advance care, encourage ambulation, remove dressing, possible discharge home today if passing flatus and tolerating diet and getting adequate pain relief with oral pain meds. Discharge instructions were given. Follow up in the office in 1 week. DT: 05:07:52 TT: 07:03:00 Ref: [id number] - TID: [id number] [id number]
[2025-05-03 07:42] VITALS: BP 124/74; PULSE 84; RESP 18; TEMP 36.6; O2SAT 97
[2025-05-03] MEDS: lorataDINE 10 MG TABLET PO (09:13)
[2025-05-03] MEDS: ESCITALOPRAM OXALATE 10 MG TABLET PO (09:13)
[2025-05-03] MEDS: PANTOPRAZOLE 40 MG TABLET PO (09:13)
[2025-05-03 12:00] VITALS: BP 112/69; PULSE 96; RESP 18; TEMP 36.6; O2SAT 97
--- NOTE | 2025-05-03 12:55 | PD.GYNDS ---
Planned Discharge Date 05/03/25 DS: Providers Provider Date of admission: 05/01/25 18:41 Primary care physician: Fred Schmitt MD Admitting Provider: Sukhwinder Rhoades MD Attending Provider on Admission: Catarino Pan MD Attending Provider on DC: Catarino Pan MD Discharging Provider: Catarino Pan MD DS: Diagnosis Discharge Diagnosis (1) Pelvic mass in female: Status: Acute Problem List Completed Was Problem List Reviewed/Reconciled?: Yes Hospital Course Hospital Course Hospital course: Patient came into the ER for large right adnexal mass. She underwent a laparotomy and right oophorectomy to remove a large ovarian cystic mass. Her postoperative course was unremarkable she was discharged home on postoperative day #1. Pathology report pending at discharge. See notes for further details. Time Spent with Patient Time spent: Less than 30 minutes Exam - SUPERVISOR GENERAL Vital Signs Temp Pulse Resp BP Pulse Ox O2 Del Method O2 Flow Rate 97.8 F 96 18 112/69 97 Room Air 10 05/03/25 12:00 05/03/25 12:00 05/03/25 12:00 05/03/25 12:00 05/03/25 12:00 05/03/25 12:00 05/02/25 14:25 Discharge Plan Plan Patient Disposition: HOME (Self Care) Patient condition on transfer: Stable Prescriptions/Referrals Prescriptions/Med Rec: New oxycodone-acetaminophen 5-325 mg Tablet 1 tab PO Q6H MDD 4 PRN (Reason: Pain Scale 4-6 (Moderate) 5 Days Qty: 20 0RF ibuprofen 600 mg Tablet 600 mg PO Q6HR PRN (Reason: PAIN(1-3) OR FEVER > 101.5) 10 Days Qty: 40 0RF sennosides-docusate sodium [Stool Softener-Laxative] 8.6-50 mg tablet 1 tab-cap PO QDAY 30 Days Qty: 30 1RF Continued escitalopram oxalate [Lexapro] 10 mg tablet 10 mg PO QDAY loratadine [Allergy Relief (loratadine)] 10 mg tablet 10 mg PO QDAY Referrals: Fred Schmitt MD [Primary Care Provider] - Sukhwinder Rhoades MD [Physician] - Patient/Caregiver Discharge Instructions Meds to Beds: Yes Discharge Activity: activity as tolerated Other Discharge Activity Instructions:: Follow up with Dr Pretty in [address] after one week. You can walk. You can eat whatever you want. You should stay around the house until your post op appointment in 1 week. Avoid work for 6 week. You can bend over and walk up stairs The transparent tape covering your incision will fall off on its own in 2 week. Dont need to clear your incision. If it gets wet in the shower just blot it dry. Come to the ER if fever, recurrent vomiting, unable to pass gas or worsening abdominal pain. Print Language: Spanish Stand Alone Forms: Nithya Award Info., Patient Portal Info Letter, DC from Surgery Discharge Order Discharge Orders: Discharge (Routine); Ordered 05/03/25 Ordered By: Catarino Pan
--- NOTE | 2025-05-03 13:20 | PC.NURSE ---
Pt waiting for family to come pick her up.
== END 2025-05-03 14:23 | disposition home or self-care (01) | DRG 513 ==
LOC: SERX 16:55 → SERHOLD 20:14 → S3NX 05-02 06:10
PROVIDERS: Physician Assistant; Admitting Provider Obstetrics & Gynecology; Emergency Provider Emergency Medicine; PCP Family Medicine; Referring Provider Emergency Medicine; Visit Provider Specialist
PROC: 0UT00ZZ Resection of Right Ovary, Open Approach (ICD-10-PCS; CPT 49000; principal; 2025-05-02 13:00)
DX: N83.201 Unspecified ovarian cyst, right side (principal); Z87.19 Personal history of other diseases of the digestive system; Z87.891 Personal history of nicotine dependence; Z90.49 Acquired absence of other specified parts of digestive tract; N94.89 Other specified conditions associated with female genital organs and menstrual cycle
CPT/HCPCS: 36415; 72195; 74176; 74181; 80053; 81001; 81025; 83605; 83690; 84703; 85025; 85610; 85730; 86304; 87400; 87811; 96361; 96375; 99285; A4217; A4649; J0131; J0690; J1100; J1171; J1885; J2250; J2270; J2371; J2405; J2704; J3010; J3490; J7030; J7042; A9270

== ENCOUNTER 2025-05-20 11:24 | Outpatient (AMB) | payer MEDICAID, SELFPAY ==
[2025-05-20 11:42] VITALS: BP 115/73; PULSE 97; RESP 17; TEMP 37; O2SAT 98; BMI 18.9
--- NOTE | 2025-05-20 11:42 | AMB.GYNCLNOT ---
Vital Signs 05/20/25 11:42 Height 1.6 m Height Method Measured Weight 48.534 kg Weight Measurement Method Standing Scale BMI 18.9 BP 115/73 Blood Pressure Source Automatic Cuff Blood Pressure Location Right Upper Arm Position Sitting Respiration 17 Pulse 97 Pulse Source Monitor Temp 98.6 F Temp Source Temporal Artery Scan Pulse Oximetry (%) 98 Oxygen Delivery Method Room Air Allergies/Home Meds Allergies & Medications Allergies terbinafine Allergy (Severe, Verified 05/20/25 11:43) Rash Medication Reconciliation escitalopram oxalate 10 mg tablet (Lexapro) 10 mg PO QDAY 05/01/25 [History Confirmed 05/20/25] loratadine 10 mg tablet (Allergy Relief (loratadine)) 10 mg PO QDAY 05/01/25 [History Confirmed 05/20/25] sennosides 8.6 mg-docusate sodium 50 mg tablet (Stool Softener-Laxative) 1 tab-cap PO QDAY 30 days #30 tabs 05/02/25 [Rx Confirmed 05/20/25] Intake Visit Data Collection New Patient or Established: Established Patient (seen at [facility] within 3 years) Reason for Visit:: SURGERY FOLLOW UP Consent obtained for Telemed Visit: No Seen by Clinical Staff ONLY (RN/MA): No Admeasurer Required: No Do You Feel Safe at Home: Yes Authorities Contacted: N/A PCP or OBGYN visit in last 3 months: Yes Date of Last PCP or OBGYN visit: 05/03/25 Hx Now: No Are you currently on any form of Control: No Pain Present Currently: No Pain Scale Used: [place]/Numerical Pain scale:: 0 Smoking Status Smoking Status: Former smoker 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 1. Little interest or pleasure in doing things: not at all 2. Feeling down, depressed, or hopeless: not at all Total score: 0 PHQ-9 3. Trouble falling or staying asleep, or sleeping too much: Not at all 4. Feeling tired or having little energy: Not at all 5. Poor appetite or overeating: Not at all 6. Feeling bad about yourself - or that you are a failure or have let yourself or your family down: Not at all 7. Trouble concentrating on things, such as reading the newspaper or watching television: Not at all 8. Moving or speaking so slowly that other people could have noticed? - Or the opposite - being so fidgety or restless that you have been moving around a lot more than usual: not at all 9. Thoughts that you would be better off or of hurting yourself in some way: Not at all Total score: 0 If you checked off any problems, how difficult have these problems made it for you to do your work, take care of things at home, or get along with other people?: not difficult at all Source: Developed by Drs. Neftaly Gutierrez, Linda Ham, Zen Baldwin and colleagues, with an educational anna from [employer]. Social History Living Situation History Housing: House Tobacco History Smoking Status: Former smoker Second Hand Smoke Exposure: No Alcohol History Alcohol Intake: Current Alcohol Intake Frequency: holidays/special occasions only Substance Use History Substance Use: Marijuana Domestic Abuse History Do You Feel Safe at Home: Yes History of Present Illness HPI Narrative Patient reports feeling okay at this 3-week postoperative follow-up visit. She mentions having absorbable stitches rather than john. Patient inquires about disability paperwork, as her doctor's note indicated she cannot work for 6 weeks following the procedure. She also expresses interest in scheduling a regular check-up with a financial aid, citing concerns about the potential recurrence of ovarian cysts based on information she read online. Eboni seeks clarification on which side the cyst was removed from, demonstrating engagement with her medical care and a desire to understand her condition better. She does not report any specific postoperative complications or concerns at this time. She is a 24-year-old female who underwent lipotomy and removal of a large cystic pelvic mass measuring 22 by 20 by 15 centimeters 3 weeks ago. The pathology results have been reviewed, revealing a benign serous cystadenoma. The cyst was removed from the right ovary. She has a history of right ovarian cyst, surgically removed. Patient is currently on disability leave for 6 weeks post-surgery. Exam Narrative Physical exam: - Abdomen: Incision site examined. No john present. Stitches are absorbable. Incision appears clean. Residual adhesive noted on skin. General General Appearance: alert, in no apparent distress and healthy appearing Head Head exam: atraumatic Neck Neck exam: Present normal inspection and trachea midline Chest Chest inspection: Present normal inspection and symmetric chest wall rise External exam: Present normal external exam; Absent tenderness Neuro Neurological exam: Present oriented X3 Psych Psychiatric exam: Present normal affect and normal mood Office Procedures OB Clinic LOC & Office Proc's Nursing/Assessment Patient Status: Initial/New Patient OB Clinic Nursing Assessment: Medication Reconciliation, Update PMH in EMR and Vital Signs OB Clinic Coordination of Care: Complex Care and Chronic Disease 1-5, Consent,records obtained, informed consent and 4+ Authorizations needed New Patient Charge New Patient Point Assignment: 2107 New Patient Point Charge: POWERSAW SUPERVISOR Level 3 ([id number]) Assessment & Plan Diagnosis / Problem List (1) Encounter for surgical aftercare following surgery on the genitourinary system: Status: Acute (2) Serous cystadenoma of right ovary: Status: Acute Plan Eboni Casillas, a 24-year-old female, presents for a 3-week postoperative follow-up after lipotomy and removal of a large cystic pelvic mass measuring 22 x 20 x 15 cm. Benign serous cystadenoma of the right ovary, status post surgical removal Assessment: Patient underwent surgical removal of a large right ovarian cyst 3 weeks ago. Pathology results confirm a benign serous cystadenoma, measuring 22 x 20 x 15 cm. The surgical site appears to be healing well, with no visible john and absorbable sutures in place. The patient reports feeling okay, with some expected postoperative soreness. Plan: - No further treatment required for the benign cyst - Remove remaining surgical glue using isopropyl alcohol or nail malay remover - No special precautions or activity restrictions - Resume all normal activities as tolerated - Schedule follow-up ultrasound in 3-6 months - Continue with 6-monthly ultrasounds to monitor for recurrence of ovarian cysts - Complete disability paperwork for 6-week work absence
== END 2025-05-20 11:58 | disposition home or self-care (01) ==
LOC: HODSOBC 11:24
PROVIDERS: PCP Family Medicine; Referring Provider Family Medicine; Supervising Provider Obstetrics & Gynecology; Visit Provider Obstetrics & Gynecology
DX: Z48.816 Encounter for surgical aftercare following surgery on the genitourinary system (principal); D27.0 Benign neoplasm of right ovary
CPT/HCPCS: 99203; 99213; G0463